=== PATIENT | female | born 2000 | race Caucasian/White ===

== ENCOUNTER 2023-06-29 17:36 | Emergency (ER) | payer SELFPAY ==
[~2023-06-29] VITALS: Ht 157.5 cm; Wt 90.0 kg
[2023-06-29 17:54] VITALS: O2SAT 100
[2023-06-29 23:15] VITALS: BP 121/78; PULSE 88; RESP 18; TEMP 98
== END 2023-06-29 23:10 | disposition home or self-care (01) ==
LOC: ER 17:36
DX: M25.561 Pain in right knee (principal); F19.90 Other psychoactive substance use, unspecified, uncomplicated
CPT/HCPCS: 73560; 99283